=== PATIENT | female | born 1985 ===

== ENCOUNTER 2018-09-21 11:17 | Emergency (ER) | payer SELFPAY ==
[2018-09-21 11:39] VITALS: BMI 29.5
--- NOTE | 2018-09-21 12:42 | OBHP ---
Datetime: 09/21/2018 12:12 IP Adm Impression: , intrauterine IP Chief Complaint Other: decreased ABDIFATAH - sent from [facility] Admit Comment, IP Provider: 33 yo with IUP at 26+1 wk based on NICOLE with history of type 2 DM on insulin and metformin was sent by Dr. Thorpe from [facility] because of decreased ABDIFATAH found today on U /S- sent to rule out rupture of membranes. Denies vaginal bleeding, loss of fluid per the vagina and she endorses good movement. Denies chest pain, dyspnea, abdominal pain, nausea, vomiting, or dy suria. ROS: negative except for stated above in HPI Obhx: Follows at [facility] 2010- term 2012- term Miscarriage in 2006 PMH: Denies PSH: Denies Medications: PNV, Metformin BID and Insulin 10 u HS Allergies: NKDA Social hx: Denies tobacco, alcohol or drug use. Family history: Mother with DM Labs: Pending faxed documentation from [facility] P.E: Vitals are stable at this time. Patient is resting comfortably in her hospital bed. EFM: reactive NST Heart: S1 And S2 appreciated on exam. Lungs: Clear auscultation bilaterally. No wheezes, rhonchi or crackles. Abdomen: Gravid, soft, non-tender to palpation. Normo-active bowel sounds. Sterile speculum exam- Dr. Dias- No pooling, nitrazine negative ASSESSMENT/PLAN: 33 yo with IUP at 26+1 wk based on NICOLE sent from [facility] for rule out rupture of membranes. - NST reactive- category 1 - Nitrazine negative - No pooling noted on exam - Negative signs for rupture of membrane - Patient to follow up with Dr. Thorpe (patient already has an appointment) Discussed with Dr. Arun Sierra , PGY1 Addendum by Dr. Dias: I have evaluated the patient independently and I agree with the above Pelvic Type - PN: Adequate Extremities - PN: Normal Abdomen - PN: Normal Back - PN: Normal Breast - PN: Not Done Lungs - PN: Normal Heart - PN: Normal Thyroid - PN: Normal Neurologic - PN: Normal HEENT - PN: Normal General - PN: Normal FHR - Baseline A Provider: 155 Membranes, Provider: Intact Pool Provider: Negative Nitrazine Provider: Negative EGA AdmitDate IP: 26.1 Vital Signs Provider: Reviewed; Within Normal Limits IP Chief Complaint: Other NICHD Variability Prov Fetus A: Moderate 6-25bpm NICHD Accel Fetus A IP Provider: [id number] FHR Category Provider Fetus A: Category I NICHD Decel Fetus A IP Provider: None Genitourinary Exam: Normal DTRs - PN: Normal
--- NOTE | 2018-09-21 12:42 | OBDCSUM ---
Datetime: 09/21/2018 12:25 Discharged to, Provider: Home Follow up at, Provider: Dr. Maurilio BARRETT and [facility] Disch Instr Activity: Normal activity Disch Instr Diet: Regular Discharge Time: 09/21/2018 12:34 Follow up in weeks, Provider: 09/24/2018 Disch Referrals: None Discharge Diagnosis Prov Other: Encounter for suspected PPROM
[2018-09-21 17:16] VITALS: BP 99/59; PULSE 78; RESP 18; TEMP 97.4; O2SAT 100
== END 2018-09-21 12:36 | disposition home or self-care (01) ==
LOC: H.EROB2 11:17
DX: O24.414 Gestational diabetes mellitus in pregnancy, insulin controlled (principal); Z3A.26 26 weeks gestation of pregnancy

== ENCOUNTER 2018-12-30 06:47 | Inpatient (IN) | payer MEDICAID, SELFPAY ==
[2018-12-30 07:46] VITALS: BMI 31.2
[2018-12-30] MEDS ORDERED: Lactated Ringer's 1,000 ML IV ONE (07:46)
[2018-12-30 08:25] LABS: BASO % 0.4 % (0.0-2.0); EOS # 0.3 K/uL (0.0-0.7); EOS % 4.1 % (0.0-4.0); HEMOGLOBIN 9.7 g/dL (12.0-16.0); LYMPH # 1.7 K/uL (1.0-4.3); LYMPH % 27.5 % (20.0-40.0); MEAN CELL VOLUME 80.2 fl (81.0-99.0); MEAN CORPUSCULAR HEMOGLOBIN 25.7 pg (27.0-31.0); MEAN PLATELET VOLUME 10.4 fl (7.2-11.7); MONO # 0.3 K/uL (0.0-0.8); MONO % 4.9 % (0.0-10.0); NEUT % 63.1 % (50.0-75.0); NRBC % 0.1 % (0.0-0.0); RBC 3.77 Mil/uL (3.80-5.20); RED CELL DISTRIBUTION WIDTH 16.5 % (11.5-14.5); WHITE BLOOD COUNT 6.3 K/uL (4.8-10.8)
[2018-12-30] MEDS ORDERED: Oxytocin 30 UNIT in NS 500 ml 30 UNITS/500 ML BAG IV ONE ×2 (08:30→10:15)
[2018-12-30 08:35] LABS: ALB/GLOB RATIO 0.8 (1.0-2.1); ALBUMIN 3.7 g/dL (3.5-5.0); BLOOD UREA NITROGEN 12 mg/dl (7-17); CALCIUM 8.7 mg/dL (8.4-10.2); GFR NON-AFRICAN AMERICAN > 60
[2018-12-30 08:43] LABS: ALT/SGPT 18 U/L (9-52); AST/SGOT 33 U/L (14-36)
[2018-12-30] MEDS: Lactated Ringer's 1,000 ML IV SCH ×3 (09:00→19:15)
[2018-12-30] MEDS ORDERED: Fentanyl/Bupivacaine HCl 250 ML EPI ONE (09:45)
[2018-12-30] MEDS ORDERED: Penicillin G 5 Million Unit Vial IVPB ONE (09:47)
[2018-12-30] MEDS ORDERED: Lactated Ringer's 1,000 ML IV SCH (18:00)
[2018-12-30] MEDS ORDERED: ceFAZolin 2 GM in Sodium Chloride 0.9% 100 ML IVPB ONE (21:50)
[2018-12-30] MEDS ORDERED: ePHEDrine 50 mg/ml Inj ONE (21:52)
[2018-12-30] MEDS ORDERED: Bupivacaine HCl 0.5% PF (30 ml) Inj ONE (21:53)
[2018-12-30] MEDS ORDERED: Morphine 5 mg/10 ml preservative-free Inj(Duramorph) ONE (21:53)
[2018-12-31] MEDS ORDERED: Oxycodone/Acetaminophen 5/325 mg Tab PO PRN ×4 (01:15→04:25)
[2018-12-31] MEDS ORDERED: Azithromycin 500 MG in Sodium Chloride 0.9% 250 ML IVPB STA (01:25)
[2018-12-31] MEDS ORDERED: Lactated Ringer's 1,000 ML IV SCH (01:30)
[2018-12-31] MEDS ORDERED: DiphenhydrAMINE 50 mg/ml Inj IVP PRN (01:31)
[2018-12-31] MEDS ORDERED: Sodium Chloride 0.9% 1,000 ML IV SCH (01:45)
[2018-12-31] MEDS ORDERED: Simethicone 80 mg Chewtab PO SCH (04:00)
[2018-12-31 06:48] LABS: HEMOGLOBIN 7.6 g/dL (12.0-16.0); MEAN CELL VOLUME 80.8 fl (81.0-99.0); MEAN CORPUSCULAR HGB CONC 32.2 g/dL (33.0-37.0); RBC 2.94 Mil/uL (3.80-5.20); RED CELL DISTRIBUTION WIDTH 16.8 % (11.5-14.5)
[2018-12-31] MEDS: Oxycodone/Acetaminophen 5/325 mg Tab PO PRN ×2 (08:48→23:30)
[2018-12-31] MEDS: Multivitamin With Minerals Tab PO SCH (08:48)
[2018-12-31] MEDS ORDERED: Multivitamin With Minerals Tab PO SCH (09:00)
[2018-12-31] MEDS: Simethicone 80 mg Chewtab PO SCH ×3 (10:25→22:08)
--- NOTE | 2018-12-31 14:22 | OP ---
PROCEDURE DATE: 12/31/2018 PREOPERATIVE DIAGNOSIS: Arrest of dilation. POSTOPERATIVE DIAGNOSIS: Arrest of dilation. OPERATION PERFORMED: Primary low-flap transverse section with bilateral tubal ligation. SURGEON: Patrick Gaspar MD MANAGER WAREHOUSE: Dr. Jacque Jones. She was helpful in creating exposure, obtaining hemostasis, delivery of the and closure of the patient. The procedure would not have been possible without her assistance. ANESTHESIA: Spinal. ANESTHESIA ADMINISTERED BY: Kavon Sal MD ESTIMATED BLOOD LOSS: 800 mL. INTRAVENOUS FLUID INTAKE: The patient received approximately 1200 mL of D5 LR intraoperatively. URINE OUTPUT: Erazo catheter put out approximately 300 mL of clear urine. OPERATIVE FINDINGS: Baby girl, vertex presentation, weighing 3825 g. Normal uterus, tubes and ovaries were identified. DESCRIPTION OF PROCEDURE: After informed consent was obtained, the patient was taken to the operating room where she was given spinal anesthesia. She was then prepped and draped in normal sterile fashion with a leftward tilt. A Pfannenstiel skin incision was then made with a scalpel and carried down to the underlying layer of fascia. The fascia was nicked in the midline. The fascial incision was then extended laterally with curved Gar scissors. Superior aspect of the fascial incision was then grasped with Sridevi clamps, elevated up, and the rectus muscles were dissected off using both sharp and blunt dissection. Attention was then turned to the inferior aspect of the incision, which in a similar fashion was grasped with Sridevi clamps, elevated up, and the rectus muscles were dissected off using both sharp and blunt dissection. The rectus muscles were then in the midline. The peritoneum was identified and entered sharply with the Metzenbaum scissors. The peritoneal incision was then extended superiorly and inferiorly with good visualization of the bladder. The bladder blade was inserted. The vesicouterine peritoneum was identified and entered sharply with Metzenbaum scissors. The incision was then extended laterally. The bladder flap was created digitally. The bladder blade was then readjusted, and a low-transverse incision was made with the scalpel. The incision was then extended laterally with the bandage scissors and the 's head was then delivered atraumatically. The nose and mouth were suctioned with DeLee suction trap. The cord was clamped and cut. The was handed off to the awaiting pediatricians. The placenta was removed manually. The uterus was exteriorized and cleared of all clots and debris. The uterine incision was repaired with 0 Vicryl in a running locked fashion. The second layer of the same suture was used to obtain excellent hemostasis. Attention was then turned to the fallopian tube, the right fallopian tube was grasped with Festus, elevated out, the knuckle was created. The knuckle was suture ligated with 2-0 Chromic and tied off with a free tie. The knuckle was then excised with the Metzenbaum scissors and the stumps were coagulated. A similar procedure was performed on the left. The uterus was returned to the abdomen. The abdomen was copiously irrigated. The irrigant was removed with the suction device. Incision was noted to be hemostatic. The gutters were then cleared of all clots and debris. The peritoneum was then closed with 2-0 Vicryl in a running fashion. The muscles were reapproximated with 0 Vicryl in an interrupted fashion. The fascia was closed with 0 Vicryl in a running fashion. The skin was closed with 3-0 on a Jad needle. All sponge, lap, needle, and instrument counts were correct x2. The patient was taken to the recovery room in awake and stable condition. Patrick Gaspar MD
[2019-01-01] MEDS: Simethicone 80 mg Chewtab PO SCH ×4 (04:11→22:33)
[2019-01-01] MEDS: Multivitamin With Minerals Tab PO SCH (09:29)
[2019-01-02] MEDS: Simethicone 80 mg Chewtab PO SCH ×4 (06:26→21:43)
--- NOTE | 2019-01-02 08:23 | OBPPN ---
Datetime: 01/02/2019 06:37 PP Pain Prov: Within normal limits PP Nausea Prov: Denies PP Flatus Prov: Yes PP BM Prov: Yes PP Breasts Prov: Not Done PP Heart Prov: Normal PP Lungs Prov: Normal PP Abdomen/Uterus Prov: Normal PP Lochia Prov: Normal PP Vulva/Perineum Prov: Normal PP CVA Tenderness Prov: Normal PP Extremities Prov: Normal PP C/S Incision Prov: Normal PP Progress Prov: Normal PP Impression Prov: Normal progression PP Plan Prov: Continue present management PP Progress Note Prov: 33 y/o , S/P C scetion and BTL on POD2 Patient seen and examined at bedside in AM. Pain well controlled with pain medications. Tolerating regular diet well Po without nuasea and vomiting. w/o difficulties. Lochia like menses . Passing flatus and had BM. Denies Fever, chills, N/V/D, CP, SOB. VS: stable GEN: NAD Cardio: S1S2, no murmurs Lungs: clear breath sounds b/l, no wheezing Abdomen: BS+, appropriate tenderness to palpation. Incision C/D/I. Uterus is firm and at the level of the umbilicus. Appropriate tenderness. EXT: No edema, calves non-tender NEURO/PSYCH: AAOx3, no grossly focal deficits, preserved affect and mood. Assessment/Plan:33 y/o , S/P C scetion and BTL on POD2. Pt remains afebrile, tolerating ger n with medication. -Percocet 5/325mg q4 and Motrin 600mg po q6 for pain as per pain scale -Incentive spirometry Q1hr -Senakot 17.2mg po QHS -Mylicon 80mg PO Q6H -Encourage and ambulation -Anticipated D/C 01/03/19 Case discussed with Attending Chris Garcia, PGY1 OB Hospitalist Addendum: Pt seen and examined by me. Agree w/above. POD 2 s/p primary s ection for arrest of dilation, doing well. Continue current management. (ES) IP PP Procedures: Tubal Ligation Vital Signs Provider PP: Reviewed; Within Normal Limits
[2019-01-02] MEDS: Multivitamin With Minerals Tab PO SCH (08:50)
[2019-01-03] MEDS: Simethicone 80 mg Chewtab PO SCH (04:28)
--- NOTE | 2019-01-03 08:20 | OBDCSUM ---
Datetime: 01/03/2019 07:42 Discharged to, Provider: Home Follow up at, Provider: PMD Disch Instr Diet: Restricted, specify Discharge Diet restrict Prov: diabetic diet Discharge Instructions, Provider: Routine instructions given Discharge Diagnosis, Provider: Term Delivered Discharge Time: 01/03/2019 08:18 Follow up in weeks, Provider: [facility] Contraception discussed, Prov: Yes Disch Activity Restrictions: No lifting Discharge Comment, Provider: EGA: 39.2 risk factors: none : 12/31/18 F WT [id number] 9/9 Post- D/C Summary: 33 YO with PMHx of T2DM on insulin, s/p due to macrofet us Patient today is POD3 with normal progression after a CBC post- H/H: 7.6/23.7 Discharge Instructions: PNV 1 tab PO daily Ibuprofen 600mg 1 tab prn for mild-mod pain Percocet 5-325 mg Po given for severe pain C/w home meds ER precautions: If excessive bleeding or fever without relief from medication, go to ED PT was urged if feeling sad, mood swing, depression, neglect of baby, suicidal thoughts, homicidal thought should go to ER or call 911 for help F/U with OBGYN in 1 week for wound care F/U in 4-6 week for PP visit with you PMD. Discharge Instructions: ER precautions: If excessive bleeding or fever without relief from medication, go to ED PT was urged if feeling sad, mood swing, depression, neglect of baby, suicidal thoughts, homicidal thought should go to ER or call 911 for help F/U in 1 week for Wound care F/U 4-6 week for PP visit Contraception after Delivery: Tubal Ligation
--- NOTE | 2019-01-03 08:20 | OBPPN ---
Datetime: 01/03/2019 07:21 PP Pain Prov: Within normal limits PP Nausea Prov: Denies PP Flatus Prov: Yes PP BM Prov: Yes PP Breasts Prov: Normal PP Heart Prov: Normal PP Lungs Prov: Normal PP Abdomen/Uterus Prov: Normal PP Lochia Prov: Not Done PP Vulva/Perineum Prov: Not Done PP CVA Tenderness Prov: Normal PP Extremities Prov: Normal PP C/S Incision Prov: Normal PP Impression Prov: Normal progression PP Plan Prov: Continue present management; Discharge PP Progress Note Prov: 33 YO , S/P and BTL on POD3 Patient seen and examined at bedside in AM. Pain well controlled with pain medications. Tolerating regular diet well without nausea and vomiting. w/o difficulties. Lochia like menses. P assing flatus and had BM. Denies Fever, chills, N/V/D, CP, SOB. VS: stable GEN: NAD Cardio: S1S2, no murmurs Lungs: clear breath sounds b/l, no wheezing Abdomen: BS+, appropriate tenderness to palpation. Incision intact. Uterus is firm and at the leve l of the umbilicus. Appropriate tenderness. EXT: No edema, calves non-tender NEURO/PSYCH: AAOx3, no grossly focal deficits, preserved affect and mood. Assessment/Plan: 33 YO , S/P C section and BTL on POD3. Pt remains afebrile, tolerating pain with medication . -Percocet 5/325mg q4 and Motrin 600mg po q6h for pain as per pain scale - C/w Incentive spirometry -Senakot 17.2mg po QHS -Mylicon 80mg PO Q6H -Encourage and ambulation -Discharge home today Case discussed with Attending MD Jhonny PGY1 OB Hospitalist Addendum: Pt seen and examined, Agree w/ above. POD 3 s/p primary secti on and BTL for arrest of dilation, doing well, breast and bottle feeding. Discharg home today. Rx's motrin, percocet, and ferrous sulfate to be given to pt. (ES) Vital Signs Provider PP: Reviewed; Within Normal Limits
[2019-01-03] MEDS: Multivitamin With Minerals Tab PO SCH (08:44)
[2019-01-03 20:29] VITALS: BP 114/73; PULSE 73; RESP 20; TEMP 98; O2SAT 99
== END 2019-01-03 14:00 | disposition home or self-care (01) | DRG 540 ==
LOC: H.EROB2 06:47 → H.L&D 07:46 → H.OB/GYN 12-31 04:00
PROVIDERS: ADMIT Obstetrics & Gynecology; ATTEND Obstetrics & Gynecology
PROC: 4A1HXCZ Monitoring of Products of Conception, Cardiac Rate, External Approach (ICD-10-PCS; 2018-12-30)
PROC: 10D00Z1 Extraction of Products of Conception, Low, Open Approach (ICD-10-PCS; principal; 2018-12-31)
PROC: 0UB70ZZ Excision of Bilateral Fallopian Tubes, Open Approach (ICD-10-PCS; 2018-12-31)
DX: O24.424 Gestational diabetes mellitus in childbirth, insulin controlled (principal); O62.0 Primary inadequate contractions; Z37.0 Single live birth; Z3A.39 39 weeks gestation of pregnancy; Z30.2 Encounter for sterilization